=== PATIENT | male | born 1980 | race Two or more races ===

== ENCOUNTER 2018-06-02 14:23 | Emergency (ER) | payer OTHER ==
[~2018-06-02] VITALS: Ht 175.3 cm; Wt 71.7 kg
[2018-06-02] MEDS ORDERED: ACETAMINOPHEN 325 MG TABLET PO ONE (15:00)
[2018-06-02] MEDS ORDERED: ACETAMINOPHEN 325 MG TABLET ONE ×2 (15:04→15:05)
--- NOTE | 2018-06-02 15:25 | NUR ---
PT REC'D TO ER C/O FEVER 3 DAYS KIDNEY TRANSPLANT TYENOL 650 MG PO VSS
--- NOTE | 2018-06-02 16:09 | NUR ---
FEVER DOWN PT. VERBALIZED UNDERSTANDING OF AFTERCARE INSTRUCTIONS.Patient discharged to home in stable condition. Written and verbal after care instructions given. Patient verbalizes understanding of instruction.
[2018-06-02 16:12] VITALS: BP 129/85
== END 2018-06-02 16:12 | disposition home or self-care (01) ==
LOC: ER 14:28
DX: J06.9 Acute upper respiratory infection, unspecified (principal); E11.22 Type 2 diabetes mellitus with diabetic chronic kidney disease; I12.0 Hypertensive chronic kidney disease with stage 5 chronic kidney disease or end stage renal disease; N18.6 End stage renal disease; Z94.0 Kidney transplant status